=== PATIENT | male | born 1940 | race Caucasian/White ===

== ENCOUNTER → 2018-05-31 | Outpatient (CLI) | payer BC, MEDICARE ==
[~2018-05-31] MED LIST: ASPI81CH; FISH1000; HYDR1TAB94 PO; LEVSOD50; LEVSOD75 PO
== END ==
LOC: LAB SHORT 07:19 → PLD 07:19
DX: D48.5 Neoplasm of uncertain behavior of skin (principal)
CPT/HCPCS: 88341; 88342

== ENCOUNTER 2018-06-15 16:51 | Emergency (ER) | payer BC, MEDICARE ==
[~2018-06-15] VITALS: Ht 177.8 cm; Wt 83.9 kg
[~2018-06-15 16:51] MED LIST changes: -HYDR1TAB94 PO; -LEVSOD75 PO
[2018-06-15] MEDS ORDERED: LEVSOD75 PO (17:14)
[2018-06-15] MEDS ORDERED: HYDR1TAB94 PO (18:47)
[2018-06-15 18:55] LABS: Source, Urine Clean Catch
[2018-06-15 18:58] LABS: Appearance, Urine Clear (Clear); Bilirubin, Urine Neg (Neg); Blood, Urine 2+ (Neg); Color, Urine Yellow (P-Yellow); Glucose Qualitative, Urine Neg (Neg); Ketones, Urine 1+ (Neg); Leukocyte Esterase, Urine 1+ (Neg); Nitrite, Urine Neg (Neg); Protein, Urine 2+ (Neg); Specific Gravity, Urine 1.025 (1.003-1.022); Urobilinogen, Urine NORM (Normal)
[2018-06-15 19:31] LABS: Bacteria Few /hpf; Squamous Epithelial Cells Few /hpf (Few)
[2018-06-15 19:32] LABS: Mucus Light (0-Heavy)
== END 2018-06-15 19:10 | disposition home or self-care (01) ==
LOC: ER 16:51
PROVIDERS: Physician Assistant
DX: S30.0XXA Contusion of lower back and pelvis, initial encounter (principal); W10.9XXA Fall (on) (from) unspecified stairs and steps, initial encounter; Z79.899 Other long term (current) drug therapy; Z79.82 Long term (current) use of aspirin; Z87.891 Personal history of nicotine dependence
CPT/HCPCS: 72100; 72170; 81001; 87086; 99283-25

== ENCOUNTER → 2018-06-22 | Outpatient (CLI) | payer BC, MEDICARE ==
[~2018-06-22] MED LIST changes: +HYDR1TAB94 PO; +LEVSOD75 PO
== END | disposition home or self-care (01) ==
LOC: LAB EV 18:07 → LAB SHORT 18:07
DX: R82.998 Other abnormal findings in urine (principal)
CPT/HCPCS: 87086

== ENCOUNTER → 2018-12-15 | Outpatient (CLI) | payer BC, MEDICARE | END | disposition home or self-care (01) | LOC: LAB SHORT 14:22 → PLD 14:22 | DX: D23.21 Other benign neoplasm of skin of right ear and external auricular canal (principal) | CPT/HCPCS: 88305; 88341; 88342 ==

== ENCOUNTER 2020-04-17 09:10 | Day surgery (SDC) | payer MEDICARE, OTHER ==
[~2020-04-17] VITALS: Ht 177.8 cm; Wt 85.0 kg
[~2020-04-17 09:10] MED LIST changes: -ASPI81CH; +ASPI81CH PO; +FISH OIL-VIT D1 EACH PO; -FISH1000
--- NOTE | 2020-04-17 13:05 | NUR ---
ASSUMED CARE OF PT. PT ALERT AND ORIENTED, CONVERSING APPROPRIATELY, DENIES PAIN AT SITE POST PROCEDURE. MONITOR A PACED 60, B/P 127/66, AFEBRILE, SPO2 93% RA. L CHEST PACEMAKER SITE NO SWELLING/HEMATOMA, TELFA AND TEGADERM DRSG INTACT. PT EATING LUNCH WITHOUT ISSUES, AT BEDSIDE ATTENTIVE.
--- NOTE | 2020-04-17 14:39 | NUR ---
PT AMB AROUND RECOVERY ROOM WITHOUT ISSUES, SITE UNCHANGED. PT DRESSED SELF, IV REMOVED-CANNULA INTACT. PT AND RECEIVED DISCHARGE INSTRUCTIONS, MED LIST AND AFTER CARE INSTRUCTIONS; VERBALIZED GOOD UNDERSTANDING. PT LEFT FACILITY VIA W/C, CONDITION STABLE.
== END 2020-04-17 14:39 | disposition home or self-care (01) ==
LOC: MHTC 09:10
DX: Z45.010 Encounter for checking and testing of cardiac pacemaker pulse generator [battery] (principal); I10 Essential (primary) hypertension; E03.9 Hypothyroidism, unspecified; N40.0 Benign prostatic hyperplasia without lower urinary tract symptoms; I49.3 Ventricular premature depolarization; I49.1 Atrial premature depolarization; C44.90 Unspecified malignant neoplasm of skin, unspecified; Z87.891 Personal history of nicotine dependence; Z79.899 Other long term (current) drug therapy
CPT/HCPCS: 33228; 99152; 99153; C1781; C1785; J0690; J1644; J2250; J3010; J7030; J7040

== ENCOUNTER → 2020-10-31 | Outpatient (CLI) | payer MEDICARE, OTHER | END | disposition home or self-care (01) | LOC: LAB SHORT 10:40 → LAB 10:40 | DX: D48.5 Neoplasm of uncertain behavior of skin (principal) | CPT/HCPCS: 88305 ==

== ENCOUNTER 2020-11-20 07:51 | Day surgery (SDC) | payer MEDICARE, OTHER ==
[~2020-11-20] VITALS: Ht 177.8 cm; Wt 81.6 kg
== END 2020-11-20 09:41 | disposition home or self-care (01) ==
LOC: ORSCSDS 07:51
PROVIDERS: Internal Medicine Gastroenterology
PROC: 0DBK8ZX Excision of Ascending Colon, Via Natural or Artificial Opening Endoscopic, Diagnostic (ICD-10-PCS; principal; 2020-11-20 09:00)
DX: Z12.11 Encounter for screening for malignant neoplasm of colon (principal); Z86.010 Personal history of colon polyps; K57.30 Diverticulosis of large intestine without perforation or abscess without bleeding; D12.2 Benign neoplasm of ascending colon; Z95.0 Presence of cardiac pacemaker; Z79.82 Long term (current) use of aspirin; Z79.899 Other long term (current) drug therapy
CPT/HCPCS: 88305; J0330; J0461; J2405; J2704; J7120

== ENCOUNTER → 2020-12-03 | Outpatient (CLI) | payer MEDICARE, OTHER | END | disposition home or self-care (01) | LOC: LAB SHORT 12:02 → LAB 12:02 | DX: C44.212 Basal cell carcinoma of skin of right ear and external auricular canal (principal) | CPT/HCPCS: 88305 ==

== ENCOUNTER → 2021-05-05 | Outpatient (CLI) | payer MEDICARE, OTHER | END | disposition home or self-care (01) | LOC: LAB SHORT 08:05 | DX: C44.41 Basal cell carcinoma of skin of scalp and neck (principal) | CPT/HCPCS: 88305 ==

== ENCOUNTER → 2021-10-04 | Outpatient (CLI) | payer OTHER ==
[~2021-10-04] MED LIST changes: +ASPI325 PO
== END | disposition home or self-care (01) ==
LOC: LAB SHORT 15:20 → LAB 15:20
DX: N39.0 Urinary tract infection, site not specified (principal)
CPT/HCPCS: 87077; 87086; 87186

== ENCOUNTER → 2021-11-27 | Outpatient (CLI) | payer OTHER | END | disposition home or self-care (01) | LOC: LAB SHORT 12:11 → PLD 12:11 | DX: C44.319 Basal cell carcinoma of skin of other parts of face (principal) | CPT/HCPCS: 88305 ==

== ENCOUNTER → 2021-12-09 | Outpatient (CLI) | payer OTHER | END | disposition home or self-care (01) | LOC: LAB SHORT 12:16 → PLD 12:16 | DX: C44.319 Basal cell carcinoma of skin of other parts of face (principal); L57.0 Actinic keratosis | CPT/HCPCS: 88305 ==

== ENCOUNTER 2024-07-24 06:59 | Day surgery (SDC) | payer OTHER ==
[2024-07-24] VITALS (9 sets, daily range): BP systolic 139–152; BP diastolic 68–97
[~2024-07-24] VITALS: Ht 177.8 cm; Wt 83.1 kg
[2024-07-24] MEDS ORDERED: Lactated Ringer's 1,000 ML IV SCH (07:10)
[2024-07-24] MEDS ORDERED: CeFAZolin Sodium 2,000 MG in NS 100 ML IV SCH (07:10)
[2024-07-24] MEDS ORDERED: CeFAZolin Sodium 2,000 MG VIAL ONE (07:59)
--- NOTE | 2024-07-24 08:05 | NUR ---
Ambulatory in Day Surgery Patient confirms NPO status and agrees with scheduled surgery. Patient States Post-Procedure ride home has been arranged. Pre-Op teaching done. Pt verbalizes understanding. History, Chart, Medications and Allergies reviewed before start of procedure.
--- NOTE | 2024-07-24 08:08 | NUR ---
Patient reports completing Chlorhexadine shower X2 prior to admission to hospital.
[2024-07-24] MEDS ORDERED: Bupivacaine 0.5% HCl 5 MG/ML 30MLVIAL ONE (08:57)
[2024-07-24] MEDS ORDERED: propofoL 20 ML IV ONE (09:01)
[2024-07-24] MEDS ORDERED: FentaNYL Citrate 50 MCG/ML 2 ML Injection ONE (09:02)
[2024-07-24] MEDS ORDERED: SuccINYLCHOLINE Chloride 100 MG/5 ML 5MLSYR ONE (09:18)
[2024-07-24] MEDS ORDERED: Dexamethasone Sod Phos 10 MG/ML 1ML VIAL ONE (09:18)
[2024-07-24] MEDS ORDERED: Ondansetron HCl 2 MG / ML 2ML Vial ONE (09:18)
[2024-07-24] MEDS ORDERED: Glycopyrrolate 0.2 MG/ML 5ML VIAL ONE (09:24)
[2024-07-24] MEDS ORDERED: ePHEDrine Sulfate 50 MG/ML 1ML Injection ONE (09:34)
[2024-07-24] MEDS ORDERED: HYDROcodone 5-APAP 325 TAB PO PRN (10:40)
--- NOTE | 2024-07-24 11:36 | NUR ---
DISCHARGE NOTE PT A&OX4, BREATHING RA, NO COMPLAINTS. PT TOLERATING PO INTAKE, AT BEDSIDE. PT HAS NO COMPLAINTS, REFUSED PO PAIN MEDICATION. Patient up to Ambulate independently. Gait steady. Discharge instructions reviewed with patient. Patient verbalizes understanding. Copy given to patient to take home. Dressing to procedure site clean, dry, intact with no visible drainage, swelling, erythema or bruising noted. Discharged via wheelchair to private car for ride home.
== END 2024-07-24 11:41 | disposition home or self-care (01) ==
LOC: ORSCMMR 06:59 → ORD 07:30 → ORSCMMR 08:30
PROVIDERS: Surgery
PROC: 0WQF0ZZ Repair Abdominal Wall, Open Approach (ICD-10-PCS; principal; 2024-07-24 08:30)
DX: K42.0 Umbilical hernia with obstruction, without gangrene (principal); E03.9 Hypothyroidism, unspecified; Z79.899 Other long term (current) drug therapy; Z79.82 Long term (current) use of aspirin
CPT/HCPCS: J0330; J0690; J1100; J2405; J2704; J3010; J7120

== ENCOUNTER → 2024-08-15 | Outpatient (CLI) | payer OTHER | END | disposition home or self-care (01) | LOC: LAB SHORT 11:57 → LAB 11:57 | DX: N39.0 Urinary tract infection, site not specified (principal) | CPT/HCPCS: 87077; 87086; 87186 ==